=== PATIENT | female | born 1940 | race Caucasian/White ===

== ENCOUNTER → 2018-07-10 | Outpatient (CLI) | payer MEDICARE ==
--- NOTE | 2018-07-10 15:35 | US ---
EXAMINATION TYPE: US kidneys/renal and bladder DATE OF EXAM: 07/10/2018 COMPARISON: NONE CLINICAL HISTORY: R94.4 ABN KIDNEY FUNCTIONS. abn labs EXAM MEASUREMENTS: Right Kidney: 9.3 x 3.7 x 4.0 cm Left Kidney: 9.7 x 3.7 x 4.6 cm Right Kidney: 2.0cm superior pole simple appearing cyst Left Kidney: No hydronephrosis or masses seen Bladder: wnl Bilateral Jets seen: no There is no evidence for hydronephrosis at this point in time. No nephrolithiasis is seen. No kirsty s are identified. The urinary bladder is anechoic. Bilateral ureteral jets are not seen. IMPRESSION: No hydronephrosis is evident bilaterally.
== END | disposition home or self-care (01) ==
LOC: RADUSWWP 14:59
PROVIDERS: ATTEND Family Medicine
DX: R94.4 Abnormal results of kidney function studies (principal)
CPT/HCPCS: 76770

== ENCOUNTER → 2020-05-06 | Outpatient (CLI) | payer MEDICARE | END | disposition home or self-care (01) | LOC: CPPFTMAIN 13:33 | PROVIDERS: ATTEND Internal Medicine Critical Care Medicine | DX: Z53.9 Procedure and treatment not carried out, unspecified reason (principal) ==

== ENCOUNTER → 2021-06-03 | Outpatient (CLI) | payer MEDICARE | END | disposition home or self-care (01) ==

== ENCOUNTER 2022-05-19 13:00 | Inpatient (IN) | payer MEDICARE ==
--- NOTE | 2022-05-19 13:54 | ED ---
Medical Decision Making - Medical Decision Making Medical screening exam: Patient is an 82-year-old female presents to the emergency department for abnormal ultrasound of the left lower extremity. Patient was seen in private care physician's office 4 days ago for swelling that happened overnight to her left calf area 9 days ago. Patient has a chest pain or shortness of breath. Vital signs upon arrival are within acceptable limits she is not tachycardic, not hypoxic and not hypotensive. Patient received the results today after receiving a phone call from radiology told her to come to the emergency department. Ultrasound was available on her electronic medical records showing extensive DVT starting at the common femoral vein extending through proximal calf veins Vital signs in triage are stable. Focused physical exam is unremarkable. Patient is not dyspneic in no acute distress. Patient's lungs are clear to auscultation bilaterally. Patient does have palpatory tenderness to the left medial thigh and left popliteal area. Blood work ordered. - Lab Data Result diagrams: 05/20/22 02:06 05/20/22 02:06 Disposition Clinical Impression: DVT (deep venous thrombosis) Disposition: ADMITTED IP TO THIS HOSP Condition: Stable
[2022-05-19 14:46] LABS: Basophils # (A) 0.1 k/uL (0-0.2); Basophils % (A) 1 %; Eosinophils # (A) 0.2 k/uL (0-0.7); Eosinophils % (A) 2 %; HCT 37.5 % (34.0-46.0); HGB 12.5 gm/dL (11.4-16.0); Lymphocytes # (A) 1.2 k/uL (1.0-4.8); Lymphocytes % (A) 15 %; MCH 29.4 pg (25.0-35.0); MCHC 33.3 g/dL (31.0-37.0); MCV 88.2 fL (80.0-100.0); Mean Platelet Volume 8.2; Monocytes # (A) 0.4 k/uL (0-1.0); Monocytes % (A) 5 %; Neutrophils # (A) 6.2 k/uL (1.3-7.7); Neutrophils % (A) 75 %; Platelet Count 290 k/uL (150-450); RBC 4.26 m/uL (3.80-5.40); RDW 12.5 % (11.5-15.5); WBC 8.3 k/uL (3.8-10.6)
[2022-05-19 15:00] LABS: Potassium 5.4 mmol/L (3.5-5.1)
[2022-05-19] MEDS ORDERED: HEPARIN SODIUM 1,000 UN/ML (10ML VL) IV ONE (15:02)
[2022-05-19] MEDS ORDERED: HEPARIN SODIUM 1,000 UN/ML (10ML VL) IV PRN (15:02)
[2022-05-19] MEDS ORDERED: HEPARIN SOD,PORK IN 0.45% NACL 25,000 UNIT in 0.45% NACL 1 250ML.BAG IV SCH (15:15)
[2022-05-19 15:28] LABS: INR 0.9 (<1.2)
[2022-05-19 15:34] LABS: Partial Thromboplastin Time 20.1 sec (22.0-30.0)
[2022-05-19] MEDS ORDERED: NALOXONE 0.4 MG/ML 1 ML VIAL IV PRN (15:58)
[2022-05-19] MEDS ORDERED: ACETAMINOPHEN TAB 325 MG TAB PO PRN (15:58)
[2022-05-19] MEDS ORDERED: SODIUM CHLORIDE 0.9% 1,000 ML IV SCH (16:00)
--- NOTE | 2022-05-19 16:01 | ED ---
General Adult HPI - General Chief complaint: Recheck/Abnormal Lab/Rx Stated complaint: Blood Clot Time Seen by Provider: 05/19/22 14:02 Source: patient, RN notes reviewed, old records reviewed Mode of arrival: wheelchair - History of Present Illness Initial comments: 82-year-old female who presents with approximately 1 week of left leg pain and swelling. She had a remote history of DVT on the right. She was sent for outpatient DVT study by her primary care physician which did show extensive DVT. She denies chest pain or palpitations. Denies dyspnea. Denies fever. She is not currently on any anticoagulation. She does take aspirin daily. - Related Data Home Medications Medication Instructions Recorded Confirmed Omalizumab [Xolair] 150 mg SQ DIRECTED 04/14/14 05/11/22 Simvastatin [Zocor] 40 mg PO HS 04/14/14 05/11/22 Thyroid,Pork [[place] Thyroid] 60 mg PO DAILY 04/14/14 05/11/22 Valsartan/Hydrochlorothiazide 40 mg PO DAILY 04/14/14 05/11/22 [Diovan Hct 80-12.5 mg Tablet] Vitamin E (Dl,Tocopheryl Acet) 400 unit PO DAILY@1200 04/14/14 05/11/22 [Vitamin E] Aspirin 1,000 mg PO DAILY 02/02/16 05/11/22 Montelukast Sodium [Singulair] 10 mg PO DAILY 12/20/17 05/11/22 Fluticasone Nasal [place] [Flonase 1 spray INHALATION HS 02/14/18 05/11/22 Nasal [place]] Multivitamin [Multivitamins Adult 1 tablet PO DAILY 09/29/21 05/11/22 Gummies] Allergies Allergy/AdvReac Type Severity Reaction Status Date / Time cimetidine Allergy Diarrhea Verified 05/19/22 13:59 cyclobenzaprine Allergy Confusion Verified 05/19/22 13:59 [Cyclobenzaprine] cyclobenzaprine HCl Allergy Hallucinati Verified 05/19/22 13:59 [From Flexeril] ons erythromycin base Allergy Unknown Verified 05/19/22 13:59 [Erythromycin Base] Penicillins Allergy Unknown Verified 05/19/22 13:59 Childhood Sulfa (Sulfonamide Allergy Swelling Verified 05/19/22 13:59 Antibiotics) sulindac [From Clinoril] Allergy Confusion Verified 05/19/22 13:59 tetracycline [Tetracycline] Allergy Unknown Verified 05/19/22 13:59 ANESTHESIA AdvReac Dyspnea Uncoded 05/19/22 13:59 Review of Systems ROS Statement: Those systems with pertinent positive or pertinent negative responses have been documented in the HPI. ROS Other: All systems not noted in ROS Statement are negative. Past Medical History Past Medical History: Asthma, GERD/Reflux, Hyperlipidemia, Hypertension, Osteoarthritis (OA), Thyroid Disorder History of Any Multi-Drug Resistant Organisms: None Reported Past Surgical History: Breast Surgery, Cholecystectomy, Hysterectomy, Tonsillectomy Additional Past Surgical History / Comment(s): KUSH CATARACT, BREAST BIOPSY Past Anesthesia/Blood Transfusion Reactions: Previous Problems w/ Anesthesia Past Psychological History: No Psychological Hx Reported Smoking Status: Never smoker Past Alcohol Use History: None Reported Past Drug Use History: None Reported General Exam General appearance: alert, in no apparent distress Head exam: Present: atraumatic, normocephalic Eye exam: Present: normal appearance, PERRL ENT exam: Present: normal exam Neck exam: Present: normal inspection. Absent: tenderness, meningismus Respiratory exam: Present: normal lung sounds bilaterally. Absent: respiratory distress, wheezes Cardiovascular Exam: Present: regular rate, normal rhythm GI/Abdominal exam: Present: soft. Absent: distended, tenderness, guarding Extremities exam: Present: other (Pain and swelling left thigh, distal pulses intact.) Neurological exam: Present: alert. Absent: motor sensory deficit Psychiatric exam: Present: normal affect, normal mood Skin exam: Present: warm, dry, intact. Absent: cyanosis, diaphoretic Course Vital Signs 05/19/22 13:55 Temperature 99 F Pulse Rate 88 Respiratory 18 Rate Blood Pressure 126/66 O2 Sat by Pulse 99 Oximetry Medical Decision Making - Medical Decision Making 82-year-old female, with DVT in the left leg, patient is started on heparin emergency department. Laboratory studies are obtained and are unremarkable. She'll be admitted to [facility] and will have consultation placed to vascular for evaluation. - Lab Data Result diagrams: 05/19/22 14:38 05/19/22 14:38 Lab Results 05/19/22 05/19/22 05/19/22 Range/Units 14:38 14:38 14:38 WBC 8.3 (3.8-10.6) k/uL RBC 4.26 (3.80-5.40) m/uL Hgb 12.5 (11.4-16.0) gm/dL Hct 37.5 (34.0-46.0) % MCV 88.2 (80.0-100.0) fL MCH 29.4 (25.0-35.0) pg MCHC 33.3 (31.0-37.0) g/dL RDW 12.5 (11.5-15.5) % Plt Count 290 (150-450) k/uL MPV 8.2 Neutrophils % 75 % Lymphocytes % 15 % Monocytes % 5 % Eosinophils % 2 % Basophils % 1 % Neutrophils # 6.2 (1.3-7.7) k/uL Lymphocytes # 1.2 (1.0-4.8) k/uL Monocytes # 0.4 (0-1.0) k/uL Eosinophils # 0.2 (0-0.7) k/uL Basophils # 0.1 (0-0.2) k/uL PT 10.0 (9.0-12.0) sec INR 0.9 (<1.2) APTT 20.1 L (22.0-30.0) sec Sodium 134 L (137-145) mmol/L Potassium 5.4 H (3.5-5.1) mmol/L Chloride 102 (98-107) mmol/L Carbon Dioxide 22 (22-30) mmol/L Anion Gap 10 mmol/L BUN 29 H (7-17) mg/dL Creatinine 0.96 (0.52-1.04) mg/dL Est GFR (CKD-EPI)AfAm 63 (>60 ml/min/1.73 sqM) Est GFR (CKD-EPI)NonAf 55 (>60 ml/min/1.73 sqM) Glucose 98 (74-99) mg/dL Calcium 10.0 (8.4-10.2) mg/dL Critical Care Time Critical Care Time: Yes Total Critical Care Time: 35 Disposition Clinical Impression: DVT (deep venous thrombosis) Disposition: ADMITTED IP TO THIS [facility] Condition: Stable Is patient prescribed a controlled substance at d/c from ED?: No Referrals: [facility] [REFERRING] - 1-2 days Time of Disposition: 16:03
[2022-05-19 17:02] LABS: Prothrombin Time 10.7 sec (9.0-12.0)
--- NOTE | 2022-05-19 18:07 | P.HPIM ---
History of Present Illness H&P Date: 05/19/22 Chief Complaint: leg swelling Patient is an 82 yo female patient of Dr. Lozada with a hx of asthma, Hx p of prior DVT in the right leg (treated with xarelto for 6 weeks in 2012), HLD, HTN, Hypothyroidism who presented to the emergency department with complaints of right lower extremity swelling. She had been sent by her PCP for US to rule out DVT. She was wheeled from radiology to the emergency department.US was reviewed and demonstrated DVT in her left leg from her CFV through proximal calf vein. Labatory analysis demonstrated potassium of 5.4. She was started on a heparin gtt and arrangement were made for admisison. Patient seen and examined at bedside. 8 days ago awoke with left lower extremity swelling with pain. Her leg is now less swollen. Continued to have swelling and pain. Had blood work a PCP and then needed stat US. No unusual chest pain or shortness of breath, feels that this can be attributed to asthma.Has been SOB for 1 year after a near experience. Follow with Dr. Pop for Pulmonary. Pertinent positives and negatives as discussed in HPI, a complete review of systems was performed and all other systems are negative. Vital signs reviewed General: nontoxic, no distress, appears at stated age Derm: warm, dry Head: atraumatic, normocephalic, symmetric Eyes: EOMI, no lid lag, anicteric sclera, pupils equal round reactive to light ENT: Nose and ears atraumatic, no thrush, no pharyngeal erythema Neck: No thyromegaly, no cervical lymphadenopathy, trachea midline, supple Mouth: no lip lesion, mucus membranes moist Cardiovascular: S1S2 reg, no murmur, positive posterior tibial pulse bilateral, no edema, capillary refill less than 2 seconds Lungs: clear to auscultation bilateral, no rhonchi, no rales, no wheeze, no accessory muscle use Abdominal: soft, nontender to palpation, no guarding, no appreciable organomegaly, normal bowel sounds Ext: no gross muscle atrophy, muscle strength muscle strength 5 out of 5 in all 4 extremities, no contractures Neuro: CN II-XII grossly intact, light touch intact all 4 extremities, finger to nose within normal limits, Psych: Alert, oriented, appropriate affect Assessment/Plan: Extensive left lower extremity DVT - Heparin gtt - likely DOAC in AM - Await vascular surgery recs Hyperkalemia - hold diovan and aldactone - repeat K+ levels in AM HTN - hold medications as above - follow BP HLD - Statin The patient is admitted with an anticipated greater than 2 midnight stay for evaluation of DVT left lower extrmiety. Surrogate decision-maker: Kwadwo CODE STATUS: Full DVT prophylaxis: heparin gtt Discussed with: patient, nursing Anticipated discharge date: in 1-[address]: home A total of 65 minutes was spent on the care of this complex patient more than 50% of the time was spent in counseling and care coordination. Past Medical History Past Medical History: Asthma, GERD/Reflux, Hyperlipidemia, Hypertension, Osteoarthritis (OA), Thyroid Disorder Additional Past Medical History / Comment(s): R LE DVT History of Any Multi-Drug Resistant Organisms: None Reported Past Surgical History: Breast Surgery, Cholecystectomy, Hysterectomy, Tonsillectomy Additional Past Surgical History / Comment(s): KUSH CATARACT, BREAST BIOPSY X 5 Past Anesthesia/Blood Transfusion Reactions: Previous Problems w/ Anesthesia Past Psychological History: No Psychological Hx Reported Smoking Status: Never smoker Past Alcohol Use History: None Reported Past Drug Use History: None Reported - Past Family History Father Additional Family Medical History / Comment(s): heart disease Mother Family Medical History: Cancer Medications and Allergies Home Medications Medication Instructions Recorded Confirmed Type Simvastatin [Zocor] 40 mg PO DAILY 04/14/14 05/19/22 History Thyroid,Pork [[place] Thyroid] 60 mg PO DAILY 04/14/14 05/19/22 History Aspirin Back And Body 2 tab PO DAILY 05/19/22 05/19/22 History Multivitamins, Thera [Multivitamin 1 tab PO DAILY 05/19/22 05/19/22 History (formulary)] Spironolactone [Aldactone] 100 mg PO DAILY 05/19/22 05/19/22 History Valsartan [Diovan] 80 mg PO DAILY 05/19/22 05/19/22 History Allergies Allergy/AdvReac Type Severity Reaction Status Date / Time cimetidine Allergy Diarrhea Verified 05/19/22 16:46 cyclobenzaprine Allergy Confusion Verified 05/19/22 16:46 [Cyclobenzaprine] cyclobenzaprine HCl Allergy Hallucinati Verified 05/19/22 16:46 [From Flexeril] ons erythromycin base Allergy Unknown Verified 05/19/22 16:46 [Erythromycin Base] Penicillins Allergy Syncope Verified 05/19/22 16:46 Sulfa (Sulfonamide Allergy Swelling Verified 05/19/22 16:46 Antibiotics) sulindac [From Clinoril] Allergy Confusion Verified 05/19/22 16:46 tetracycline [Tetracycline] Allergy Unknown Verified 05/19/22 16:46 ANESTHESIA AdvReac Dyspnea Uncoded 05/19/22 16:46 Physical Exam Osteopathic Statement: *. No significant issues noted on an osteopathic structural exam other than those noted in the History and Physical/Consult. Vitals: Vital Signs Temp Pulse Resp BP Pulse Ox 05/19/22 13:55 99 F 88 18 126/66 99 Intake and Output 05/19/22 05/19/22 05/19/22 06:59 14:59 22:59 Other: Weight 49.895 kg Results CBC & Chem 7: 05/19/22 14:38 05/19/22 14:38 Labs: Abnormal Lab Results - Last 24 Hours (Table) 05/19/22 05/19/22 Range/Units 14:38 14:38 APTT 20.1 L (22.0-30.0) sec Sodium 134 L (137-145) mmol/L Potassium 5.4 H (3.5-5.1) mmol/L BUN 29 H (7-17) mg/dL
[2022-05-19] MEDS ORDERED: MELATONIN 3 MG TABLET PO PRN (18:08)
[2022-05-19] MEDS ORDERED: ONDANSETRON 4 MG/2 ML VIAL IVP PRN (18:08)
[2022-05-19] MEDS ORDERED: HYDROcodone/APAP 5-325MG 1 EACH TAB PO PRN (18:08)
[2022-05-20] MEDS: SODIUM CHLORIDE 0.9% 1,000 ML IV SCH ×2 (01:05→09:35)
[2022-05-20 02:19] LABS: HCT 34.8 % (34.0-46.0); HGB 11.6 gm/dL (11.4-16.0); MCH 29.6 pg (25.0-35.0); MCHC 33.3 g/dL (31.0-37.0); MCV 88.8 fL (80.0-100.0); Mean Platelet Volume 7.5; Platelet Count 267 k/uL (150-450); RBC 3.93 m/uL (3.80-5.40); RDW 12.5 % (11.5-15.5)
[2022-05-20 02:52] LABS: African American GFR (CKD) 58 (>60 ml/min/1.73 sqM); Anion Gap 5 mmol/L; Blood Urea Nitrogen 32 mg/dL (7-17); Carbon Dioxide 25 mmol/L (22-30); Chloride 104 mmol/L (98-107); Glucose 103 mg/dL (74-99); Non-African American GFR(CKD) 50 (>60 ml/min/1.73 sqM); Sodium 134 mmol/L (137-145)
[2022-05-20 05:48] VITALS: RESP 16
[2022-05-20] MEDS ORDERED: MULTIVITAMINS, THERA 1 EACH TAB PO SCH (09:00)
[2022-05-20] MEDS ORDERED: ATORVASTATIN 20 MG TAB PO SCH (09:00)
[2022-05-20] MEDS ORDERED: THYROID, PORK 30 MG TAB PO SCH (09:00)
[2022-05-20 12:00] VITALS: BP 119/69; PULSE 86; TEMP 98.2
--- NOTE | 2022-05-20 12:00 | P.GSCN ---
History of Present Illness Consult date: 05/20/22 Reason for Consult: Deep venous thrombosis left lower extremity. Requesting physician: Debora Mendes History of present illness: Patient is a 82-year-old female who was admitted yesterday to be treated for acute left femoral/popliteal and tibial deep venous thrombosis. Patient indicated that she awoke town sleep approximately 1 week ago with the entirety of her leg edematous. She denied any shortness of breath. She eventually presented to her primary care physician. Subsequently venous duplex was performed for suspicion of deep venous thrombosis. DVT was confirmed on the study and the patient was subsequently admitted to the hospital. The patient has a significant history of deep venous thrombosis affecting the right lower extremity in 2012. She was treated for this with 6 months of oral anticoagulation. Additionally the patient has a cousin who apparently has a hypercoagulable syndrome and is on oral anticoagulant for lifetime. The patient does use support hose regularly. She indicates these are 15-20 mm gradient compression. These are at least 2 years old. Past Medical History Past Medical History: Asthma, Deep Vein Thrombosis (DVT), GERD/Reflux, Hyperlipidemia, Hypertension, Osteoarthritis (OA), Thyroid Disorder Additional Past Medical History / Comment(s): R LE DVT, current Left leg DVT History of Any Multi-Drug Resistant Organisms: None Reported Past Surgical History: Breast Surgery, Cholecystectomy, Hysterectomy, Tonsillectomy Additional Past Surgical History / Comment(s): KUSH CATARACT, BREAST BIOPSY X 5 Past Anesthesia/Blood Transfusion Reactions: Previous Problems w/ Anesthesia Past Psychological History: No Psychological Hx Reported Smoking Status: Never smoker Past Alcohol Use History: None Reported Past Drug Use History: None Reported - Past Family History Father Additional Family Medical History / Comment(s): heart disease Mother Family Medical History: Cancer Medications and Allergies Home Medications Medication Instructions Recorded Confirmed Type Simvastatin [Zocor] 40 mg PO DAILY 04/14/14 05/19/22 History Thyroid,Pork [[place] Thyroid] 60 mg PO DAILY 04/14/14 05/19/22 History Aspirin Back And Body 2 tab PO DAILY 05/19/22 05/19/22 History Multivitamins, Thera [Multivitamin 1 tab PO DAILY 05/19/22 05/19/22 History (formulary)] Spironolactone [Aldactone] 100 mg PO DAILY 05/19/22 05/19/22 History Valsartan [Diovan] 80 mg PO DAILY 05/19/22 05/19/22 History Allergies Allergy/AdvReac Type Severity Reaction Status Date / Time cimetidine Allergy Diarrhea Verified 05/19/22 16:46 cyclobenzaprine Allergy Confusion Verified 05/19/22 16:46 [Cyclobenzaprine] cyclobenzaprine HCl Allergy Hallucinati Verified 05/19/22 16:46 [From Flexeril] ons erythromycin base Allergy Unknown Verified 05/19/22 16:46 [Erythromycin Base] Penicillins Allergy Syncope Verified 05/19/22 16:46 Sulfa (Sulfonamide Allergy Swelling Verified 05/19/22 16:46 Antibiotics) sulindac [From Clinoril] Allergy Confusion Verified 05/19/22 16:46 tetracycline [Tetracycline] Allergy Unknown Verified 05/19/22 16:46 ANESTHESIA AdvReac Dyspnea Uncoded 05/19/22 16:46 Surgical - Exam Osteopathic Statement: *. No significant issues noted on an osteopathic structural exam other than those noted in the History and Physical/Consult. Vital Signs Temp Pulse Resp BP Pulse Ox 99 F 88 18 126/66 99 05/19/22 13:55 05/19/22 13:55 05/19/22 13:55 05/19/22 13:55 05/19/22 13:55 Femoral, popliteal, DP pulses are intact bilaterally. No leg edema is noted. Toes are freely movable and nontender. Patient is currently utilizing support hose. Results - Labs 05/20/22 02:06 05/20/22 02:06 Abnormal Lab Results - Last 24 Hours (Table) 05/19/22 05/19/22 05/19/22 Range/Units 14:38 14:38 20:34 APTT 20.1 L 61.7 H (22.0-30.0) sec Sodium 134 L (137-145) mmol/L Potassium 5.4 H (3.5-5.1) mmol/L BUN 29 H (7-17) mg/dL Glucose (74-99) mg/dL 05/20/22 05/20/22 05/20/22 Range/Units 02:06 02:06 08:28 APTT 130.9 H* 40.3 H (22.0-30.0) sec Sodium 134 L (137-145) mmol/L Potassium (3.5-5.1) mmol/L BUN 32 H (7-17) mg/dL Glucose 103 H (74-99) mg/dL Diabetes panel 05/19/22 05/20/22 Range/Units 14:38 02:06 Sodium 134 L 134 L (137-145) mmol/L Potassium 5.4 H 5.0 (3.5-5.1) mmol/L Chloride 102 104 (98-107) mmol/L Carbon Dioxide 22 25 (22-30) mmol/L BUN 29 H 32 H (7-17) mg/dL Creatinine 0.96 1.03 (0.52-1.04) mg/dL Glucose 98 103 H (74-99) mg/dL Calcium 10.0 9.0 (8.4-10.2) mg/dL Calcium panel 05/19/22 05/20/22 Range/Units 14:38 02:06 Calcium 10.0 9.0 (8.4-10.2) mg/dL Pituitary panel 05/19/22 05/20/22 Range/Units 14:38 02:06 Sodium 134 L 134 L (137-145) mmol/L Potassium 5.4 H 5.0 (3.5-5.1) mmol/L Chloride 102 104 (98-107) mmol/L Carbon Dioxide 22 25 (22-30) mmol/L BUN 29 H 32 H (7-17) mg/dL Creatinine 0.96 1.03 (0.52-1.04) mg/dL Glucose 98 103 H (74-99) mg/dL Calcium 10.0 9.0 (8.4-10.2) mg/dL Adrenal panel 05/19/22 05/20/22 Range/Units 14:38 02:06 Sodium 134 L 134 L (137-145) mmol/L Potassium 5.4 H 5.0 (3.5-5.1) mmol/L Chloride 102 104 (98-107) mmol/L Carbon Dioxide 22 25 (22-30) mmol/L BUN 29 H 32 H (7-17) mg/dL Creatinine 0.96 1.03 (0.52-1.04) mg/dL Glucose 98 103 H (74-99) mg/dL Calcium 10.0 9.0 (8.4-10.2) mg/dL Assessment and Plan Assessment: #1: Acute left femoral/popliteal and tibial venous thrombosis. #2: History of deep venous thrombosis affecting the right lower extremity in 2013. #3: Hypothyroidism. #4: Dyslipidemia. Plan: #1: I agree with currently instituted therapy of anticoagulation. I believe the patient would benefit from at least 4-6 months worth of oral anticoagulation given this is the second venous thrombotic event, both of which are apparently u nprovoked. #2: I would believe a hematology consultation to rule out a hypercoagulable syndrome given a second unprovoked venous thrombotic event with a somewhat remote family history of hypercoagulable syndrome affecting a cousin. #3: Discussed with patient and her family manufacture recommendations of replacing support hose on an every six-month basis. #4: I would be happy to reevaluate this patient and your request. Thank you very much for allowing me to position in the care of your patient. I do trust this consultation is useful to you. I would be happy to reevaluate the patient at your request. Time with Patient: Greater than 30
[2022-05-20] MEDS ORDERED: RIVAROXABAN 15 MG TAB PO STA (13:07)
--- NOTE | 2022-05-20 13:11 | P.DS ---
Providers Date of admission: 05/19/22 15:59 Expected date of discharge: 05/20/22 Attending physician: Debora Mendes, DO Consults: 05/19/22 15:58 Consult Physician Routine Consulting Provider: Jd Gillette Consult Reason/Comments: DVT Do you want consulting provider notified?: Yes Primary care physician: Lawrence Lozada Hospital Course: Discharge Diagnosis: Extensive left lower extremity DVT Hyperkalemia, resolved HTN HLD Hospital Course: Patient is an 82 yo [address] patient of Dr. Lozada with a hx of asthma, Hx p of prior DVT in the right leg (treated with xarelto for 6 weeks in 2012), HLD, HTN, Hypothyroidism who presented to the emergency department with complaints of right lower extremity swelling. She had been sent by her PCP for US to rule out DVT. She was wheeled from radiology to the emergency department.US was reviewed and demonstrated DVT in her left leg from her CFV through proximal calf vein. Labatory analysis demonstrated potassium of 5.4. She was started on a heparin gtt and arrangement were made for admisison. She was seen by vascular surgery who recommends oral anticoagulation. She would benefit from an outpatient evaluation for hypercoagulable state as this is her second blood clot. She was started on Xarelto and discharged home. Follow-up: Dr. Lozada in 1 week, Dr. Dukes in 4 weeks, Compression stockings when up and ambulating. Patient seen and examined at bedside. Doing well, swelling in her lower extremity is improved. No chest pain or shortness of breath. Family at bedside all questi Vital signs reviewed and stable. General: nontoxic, no distress, appears at stated age Derm: warm, dry Head: atraumatic, normocephalic, symmetric Eyes: EOMI, no lid lag, anicteric sclera Mouth: no lip lesion, mucus membranes moist Cardiovascular: S1S2 reg, no murmur, positive posterior tibial pulse bilateral, Lungs: CTA bilateral, no rhonchi, no rales , no accessory muscle use Abdominal: soft, nontender to palpation, no guarding, no appreciable organomegaly Ext: no gross muscle atrophy, trace edema left lower extremity, no contractures Neuro: CN II-XI grossly intact, no focal neuro deficits Psych: Alert, oriented, appropriate affect A total of 33 minutes of time were spent preparing this complex discharge summary. Patient was discharged on 05/20/22. Patient Condition at Discharge: Stable Plan - Discharge Summary Discharge Rx Participant: No New Discharge Prescriptions: New Rivaroxaban [Xarelto Starter Pack] 0 mg PO DIRECTED 30 Days #1 packet Continue Thyroid,Pork [[place] Thyroid] 60 mg PO DAILY Simvastatin [Zocor] 40 mg PO DAILY Valsartan [Diovan] 80 mg PO DAILY Multivitamins, Thera [Multivitamin (formulary)] 1 tab PO DAILY Discontinued Spironolactone [Aldactone] 100 mg PO DAILY Aspirin Back And Body 2 tab PO DAILY Discharge Medication List Simvastatin [Zocor] 40 mg PO DAILY 04/14/14 [History] Thyroid,Pork [[place] Thyroid] 60 mg PO DAILY 04/14/14 [History] Multivitamins, Thera [Multivitamin (formulary)] 1 tab PO DAILY 05/19/22 [History] Valsartan [Diovan] 80 mg PO DAILY 05/19/22 [History] Rivaroxaban [Xarelto Starter Pack] 0 mg PO DIRECTED 30 Days #1 packet 05/20/22 [Rx] Follow up Appointment(s)/Referral(s): [facility] [REFERRING] - 1-2 days Amauri Conroy MD [STAFF PHYSICIAN] - 4 Weeks Activity/Diet/Wound Care/Special Instructions: Activity: as tolerated, compression stocking. Diet: heart healthy Special Instructions: Stay off your Spironolactone until seen by T[facility] as your potassium was high this admission. Thank you for allowing us to participate in your care. We wish you well on your journey to better health. Discharge Disposition: HOME SELF-CARE
== END 2022-05-20 16:33 | disposition home or self-care (01) | DRG 300 ==
LOC: EC 13:00 → 5NMEDONC 15:59
PROVIDERS: ADMIT Internal Medicine; ATTEND Internal Medicine
DX: I82.442 Acute embolism and thrombosis of left tibial vein (principal); D68.59 Other primary thrombophilia; E03.9 Hypothyroidism, unspecified; E78.5 Hyperlipidemia, unspecified; E87.5 Hyperkalemia; I10 Essential (primary) hypertension; J45.909 Unspecified asthma, uncomplicated; Z79.82 Long term (current) use of aspirin; Z79.899 Other long term (current) drug therapy; Z86.718 Personal history of other venous thrombosis and embolism; Z90.710 Acquired absence of both cervix and uterus; Z79.890 Hormone replacement therapy; Z90.49 Acquired absence of other specified parts of digestive tract; Z90.89 Acquired absence of other organs; Z98.890 Other specified postprocedural states; Z80.9 Family history of malignant neoplasm, unspecified; Z82.49 Family history of ischemic heart disease and other diseases of the circulatory system; Z88.4 Allergy status to anesthetic agent; Z88.1 Allergy status to other antibiotic agents; Z88.0 Allergy status to penicillin; Z88.2 Allergy status to sulfonamides; Z88.8 Allergy status to other drugs, medicaments and biological substances; Z98.42 Cataract extraction status, left eye; Z98.41 Cataract extraction status, right eye
CPT/HCPCS: 36415; 80048; 85025; 85027; 85610; 85730

== ENCOUNTER → 2022-05-19 | Outpatient (CLI) | payer MEDICARE ==
--- NOTE | 2022-05-19 13:01 | US ---
EXAMINATION TYPE: US venous doppler duplex LE LT DATE OF EXAM: 05/19/2022 12:42 PM COMPARISON: NONE CLINICAL HISTORY: LLE R79.1 Elevated D-Dimer. SIDE PERFORMED: Left TECHNIQUE: The lower extremity deep venous system is examined utilizing real time linear array sonog kristine with graded compression, doppler sonography and color-flow sonography. VESSELS IMAGED: Common Femoral Vein Deep Femoral Vein Greater Saphenous Vein * Femoral Vein Popliteal Vein Small Saphenous Vein * Proximal Calf Veins (* superficial vessels) Left Leg: Positive for DVT starting at CFV and extending through proximal calf veins, including DFV. IMPRESSION: Findings compatible with DVT as above.
== END | disposition home or self-care (01) ==
LOC: RADUSWWP 12:03
PROVIDERS: ATTEND Family Medicine
DX: R79.1 Abnormal coagulation profile (principal)

== ENCOUNTER → 2023-09-18 | Outpatient (CLI) | payer MEDICARE ==
--- NOTE | 2023-09-19 09:03 | MM ---
Reason for Exam: Screening (asymptomatic). Last mammogram was performed 1 year(s) and 5 month(s) ago. Patient History: Menarche at age 12. First Full-Term at age 20. Hysterectomy at age 58. Postmenopausal. Core Biopsy on the Left side. 12/24/2012, Bilateral Benign Excisional Biopsy. 12/17/2012, Benign Core Biopsy on the right side. 02/05/2004, Benign Stereotactic Core Biopsy on the left side. Risk Values: Trish 5 year model risk: 1.6%. NCI Lifetime model risk: 1.6%. Prior Study Comparison: 10/21/2019 Bilateral MG screening mammo w CAD - 2, [facility]. 11/09/2020 Bilateral MG screening mammo w CAD - 2, [facility]. 04/13/2022 Bilateral MG 3D screening mammo w/cad, [facility]. Tissue Density: The breast tissue is heterogeneously dense. This may lower the sensitivity of mammography. Findings: Analyzed By CAD. There is no suspicious group of microcalcifications or new suspicious mass in either breast. Overall Assessment: Benign, BI-RAD 2 Management: Screening Mammogram of both breasts in 1 year. . Patient should continue monthly self-breast exams. A clinical breast exam by your physician is recommended on an annual basis. This exam should not preclude additional follow-up of suspicious palpable abnormalities. Note on Trish scores and lifetime risk: 1. A Trish score greater than 3% is considered moderate risk. If this is the case, consider specialist referral to assess eligibility for a risk reducing agent. 2. If overall lifetime risk for the development of breast cancer is 20% or higher, the patient may qualify for future screening with alternating mammogram and breast MRI. Electronically signed and approved by: Alfredo Pemberton M.D. [facility]
== END | disposition home or self-care (01) ==
LOC: RADMAMWWP 14:36
PROVIDERS: ATTEND Family Medicine
DX: Z12.31 Encounter for screening mammogram for malignant neoplasm of breast (principal); Z78.0 Asymptomatic menopausal state
CPT/HCPCS: 77063; 77067